=== PATIENT | female | born 2000 | race Caucasian/White ===

== ENCOUNTER 2020-06-22 11:25 | Emergency (ER) | payer BC ==
[~2020-06-22] VITALS: Ht 160 cm; Wt 55.2 kg
[2020-06-22] MEDS ORDERED: HYDR-3237 PO (11:49)
--- NOTE | 2020-06-22 11:53 | NUR ---
ERP AT BS NOW. PT C/O SHARP LOWER ABD/PELVIC PAIN, CONSTANT, WORSE WITH EATING. +NAUSEA, NO VOMITING. 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 HAS ALSO BEEN TO [facility] AND IS SUPPOSED TO GET CT SCAN & COLONOSCOPY. REPORTS PAIN WORSE SINCE THIS SATURDAY. IUD IN PLACE, NEVER BEEN . PT ALSO REPORTS SHE HAD THOUGHTS OF SI ABOUT 2 MONTHS AGO, NO PLAN, IS CURRENTLY SEEING A COUNSELOR. NO SI CURRENTLY.
[2020-06-22] MEDS ORDERED: KETOROLAC 30 MG/1 ML IVPush ONE (12:00)
[2020-06-22] MEDS ORDERED: SODIUM CHLORIDE FLUSH 10ML SYR IVF ONE (12:00)
[2020-06-22] MEDS ORDERED: KETOROLAC 30 MG/1 ML ONE (12:12)
--- NOTE | 2020-06-22 12:20 | NUR ---
IV INSERTED, BLOOD DRAWN, PT MEDICATED FOR PAIN. RV'WD POC WITH PT. INSTRUCTED ON CLEAN CATCH URINE SAMPLE.
[2020-06-22 12:22] LABS: BASOPHILS % (AUTO) 0 % (0-1); EOSINOPHILS % (AUTO) 1 % (1-7); LYMPHOCYTES % (AUTO) 35 % (22-44); MEAN CORPUSCULAR HEMOGLOBIN 29.4 pg (27.0-34.8); MEAN CORPUSCULAR HGB CONC 34.2 g/dL (32.4-35.8); MEAN PLATELET VOLUME 9.1 fL (7.4-10.4); MONOCYTES % (AUTO) 5 % (2-9); NEUTROPHILS % (AUTO) 59 % (42-75); PLATELET COUNT 192 x10^3/uL (130-400); RED BLOOD COUNT 4.93 x10^6/uL (3.82-5.3); RED CELL DISTRIBUTION WIDTH 12.6 % (9.6-15.2)
[2020-06-22 12:24] LABS: MD NO
--- NOTE | 2020-06-22 12:30 | NUR ---
PT TO US VIA [facility].
[2020-06-22 12:35] LABS: ALBUMIN 4.2 g/dL (3.4-5.0); CALCIUM 8.7 mg/dL (8.5-10.1)
[2020-06-22 12:41] LABS: ALKALINE PHOSPHATASE 68 U/L (45-117); BILIRUBIN,TOTAL 0.5 mg/dL (0.2-1.0); CREATININE 0.65 mg/dL (0.55-1.02); TOTAL PROTEIN 7.7 g/dL (6.4-8.2)
[2020-06-22 12:43] LABS: ALANINE AMINOTRANSFERASE 19 U/L (12-78); ANION GAP 5 mmol/L (5-15); CHLORIDE 110 mmol/L (98-107)
--- NOTE | 2020-06-22 12:53 | NUR ---
PT RETURNS FROM US.
--- NOTE | 2020-06-22 13:02 | NUR ---
PT AMBULATED TO BR WITHOUT DIFFICULTY.
[2020-06-22 13:30] LABS: MICROSCOPIC AUTO
[2020-06-22 14:05] VITALS: BP 96/56
--- NOTE | 2020-06-22 14:06 | NUR ---
D/C INSTRUCTIONS, MEDS & F/U APPT RV'WD WITH PT, SHE VERBALIZES UNDERSTANDING. RX GIVEN X1. PT AMBULATED OUT OF ED WITHOUT DIFFICULTY.
== END 2020-06-22 14:05 | disposition home or self-care (01) ==
LOC: ED 12:58
DX: R10.30 Lower abdominal pain, unspecified (principal); R11.0 Nausea
CPT/HCPCS: 36415; 76830; 80053; 81001; 83690; 84703; 85025; 87086; 96374; 99284; J1885